=== PATIENT | female | born 1940 | race Hispanic/Latino ===

== ENCOUNTER 2017-07-24 09:45 | Outpatient (CLI) | payer MEDICARE ==
--- NOTE | 2017-07-24 11:25 | XRay Report ---
Single view abdomen: History: Essential hypertension. Findings: Stool in ascending colon. No bowel distention. Vascular abdominal and iliac vessels stent. No radiopaque calculus or abnormal calcification. Impression: No bowel distention.
== END 2017-07-24 09:46 | disposition home or self-care (01) ==
LOC: SPVIMAG 09:45
PROVIDERS: ATTEND Surgery Vascular Surgery
DX: I10 Essential (primary) hypertension (principal); I65.23 Occlusion and stenosis of bilateral carotid arteries; I87.2 Venous insufficiency (chronic) (peripheral); I87.1 Compression of vein; I87.332 Chronic venous hypertension (idiopathic) with ulcer and inflammation of left lower extremity; I70.293 Other atherosclerosis of native arteries of extremities, bilateral legs; I80.209 Phlebitis and thrombophlebitis of unspecified deep vessels of unspecified lower extremity
CPT/HCPCS: 74000

== ENCOUNTER 2017-10-25 08:52 | Outpatient (CLI) | payer MEDICARE ==
--- NOTE | 2017-10-25 11:13 | XRay Report ---
XRAY LEFT ANKLE THREE VIEWS: 10/25/17 08:52:00 CLINICAL: Left ankle pain. FINDINGS: The ankle mortise is intact. Pes planus deformity with an intact talar dome. There is also a varus deformity of the foot. Avulsion fracture of the medial malleolus with a relatively large avulsed fragment of bone is of uncertain age. Moderate diffuse osteopenia. A K wire and screw are identified in the distal first metatarsal. Mild soft tissue swelling which appears to be greater in the lateral than medial. No soft tissue air or foreign body. IMPRESSION: Avulsion fracture of the medial malleolus of uncertain age. Pes planus and varus deformities of the foot.
== END 2017-10-25 08:53 | disposition home or self-care (01) ==
LOC: SPVIMAG 08:52
PROVIDERS: ATTEND Orthopaedic Surgery Sports Medicine
DX: S82.52XA Displaced fracture of medial malleolus of left tibia, initial encounter for closed fracture (principal); M85.872 Other specified disorders of bone density and structure, left ankle and foot; M21.6X2 Other acquired deformities of left foot; X58.XXXA Exposure to other specified factors, initial encounter; Y93.89 Activity, other specified; Y92.89 Other specified places as the place of occurrence of the external cause; Y99.8 Other external cause status

== ENCOUNTER 2017-11-27 09:34 | Outpatient (CLI) | payer MEDICARE ==
--- NOTE | 2017-11-27 11:43 | XRay Report ---
XRAY LEFT ANKLE FOUR VIEWS: 11/27/17 09:34:00 CLINICAL: Ankle pain. COMPARISON: 10/25/17 FINDINGS: Stable avulsion fracture of the medial malleolus. No callus. The ankle mortise is intact. Stable soft tissue swelling. Pes planus deformity. IMPRESSION: Subacute medial malleolus avulsion fracture without change compared to the prior exam.
== END 2017-11-27 09:35 | disposition home or self-care (01) ==
LOC: SPVIMAG 09:34
PROVIDERS: ATTEND Orthopaedic Surgery Sports Medicine
DX: M25.572 Pain in left ankle and joints of left foot (principal); S82.52XD Displaced fracture of medial malleolus of left tibia, subsequent encounter for closed fracture with routine healing; X58.XXXD Exposure to other specified factors, subsequent encounter